=== PATIENT | female | born 1945 | race Caucasian/White ===

== ENCOUNTER 2018-11-07 03:53 | Observation (INO) | payer OTHER ==
[2018-11-07] MEDS ORDERED: ONDANSETRON 4 MG/2 ML VIAL ONE (04:32)
[2018-11-07 04:49] LABS: Absolute Lymphocytes (CBC) 0.2 K/uL (0.7-4.9); Basophils % 0.1 % (0-1.3); Hematocrit 40.7 % (36.0-45.0); Lymphocytes % 1.5 % (15.3-44.8); MPV 10.1 fL (7.6-11.3); RBC Red Blood Cell Count 4.37 M/uL (3.86-4.86)
[2018-11-07 05:01] LABS: ALT/SGPT 31 U/L (12-78); AST/SGOT 68 U/L (15-37); Albumin 3.7 g/dL (3.4-5.0); Alkaline Phosphatase 119 U/L (45-117); BUN Blood Urea Nitrogen 34 mg/dL (7-18); Bicarbonate 24 mmol/L (21-32); Bilirubin Total 0.9 mg/dL (0.2-1.0); Glucose Level 134 mg/dL (74-106); NT PRO-BNP 147 pg/mL (<125); Potassium 4.1 mmol/L (3.5-5.1); Protein, Total 6.9 g/dL (6.4-8.2); Sodium Level 142 mmol/L (136-145); Troponin (Emerg Dept Use Only) < 0.02 ng/mL (0.0-0.045)
[2018-11-07 05:20] LABS: Blood Morphology Comment NOT SEEN (NOT SEEN); Platelet Estimate ADEQ; Urine White Blood Cell Casts OK
--- NOTE | 2018-11-07 05:27 | ER ---
Nurse's Notes [facility] Name: Aminta Herman Age: 73 yrs Sex: Female : 1945 Arrival Date: 11/07/2018 Time: 03:58 Bed 13 Private MD: Diagnosis: Chest pain, unspecified Presentation: 11/07 04:09 Presenting complaint: Patient states: Nausea, diarrhea that began suddenly about 0130 lp1 this morning; States "I just feel so worn out, I can't do anything"; reports low blood pressure of 70 systolic at home. Transition of care: patient was not received from another setting of care. Onset of symptoms was November 07, 2018 at 01:30. Risk Assessment: Do you want to hurt yourself or someone else? Patient reports no desire to harm self or others. Initial Sepsis Screen: Does the patient meet any 2 criteria? No. Patient's initial sepsis screen is negative. Does the patient have a suspected source of infection? No. Patient's initial sepsis screen is negative. Care prior to arrival: None. 04:09 Method Of Arrival: Wheelchair lp1 04:09 Acuity: GABRIELA 3 lp1 Historical: - Allergies: 04:14 Coumadin; lp1 - Home Meds: 04:14 lisinopril 20 mg Oral tab 1 tab once daily [Active]; hydroxychloroquine 200 mg oral tab lp1 2 times per day [Active]; Prilosec 40 mg Oral cpDR 1 cap once daily [Active]; - PMHx: 04:14 Rheumatoid Arthritis; Hypertension; GERD; lp1 - PSHx: 04:14 Knee surgery; rotator cuff repair; bariatric surgery; back surgery; Cholecystectomy; lp1 - Immunization history:: Adult Immunizations up to date. - Social history:: Smoking status: Patient/guardian denies using tobacco. - Ebola Screening: : No symptoms or risks identified at this time. Screenin:14 Abuse screen: Denies threats or abuse. Denies injuries from another. Nutritional lp1 screening: No deficits noted. Tuberculosis screening: No symptoms or risk factors identified. Fall Risk Total [place] Fall Scale indicates High Risk Score (45 or more points). Fall prevention measures have been instituted. Side Rails Up X 2 As available patient and family educated on Fall Prevention Program and Strategies. Assessment: 04:15 General: Appears uncomfortable, Behavior is anxious, Reports fatigue for 0-12 hours. lp1 Pain: Complains of pain in chest, right upper quadrant and left upper quadrant Pain currently is 10 out of 10 on a pain scale. Quality of pain is described as aching. Neuro: Level of Consciousness is awake, alert, obeys commands, Oriented to person, place, time, situation. Cardiovascular: Patient's skin is warm and dry. Respiratory: Respiratory effort is even, unlabored, Respiratory pattern is regular. GI: Abdomen is non-distended, Bowel sounds present X 4 quads. Reports diarrhea, nausea. : No signs and/or symptoms were reported regarding the genitourinary system. EENT: No signs and/or symptoms were reported regarding the EENT system. Derm: Skin is thin, Skin is dry, Skin is pale. Musculoskeletal: No deficits noted. Vital Signs: 04:10 BP 127 / 82; Pulse 77; Resp 18; Temp 98.1(O); Pulse Ox 99% on R/A; Weight 72.57 kg; lp1 Height 5 ft. 0 in. (152.40 cm); Pain 10/10; 04:30 BP 103 / 71; Pulse 76; Resp 20; Pulse Ox 96% on R/A; lp1 05:00 BP 104 / 70; Pulse 74; Resp 20; Pulse Ox 97% on R/A; lp1 05:30 BP 102 / 69; Pulse 69; Resp 20; Pulse Ox 96% on R/A; lp1 04:10 Body Mass Index 31.25 (72.57 kg, 152.40 cm) lp1 ED Course: 03:58 Patient arrived in ED. mr 04:07 Raulito Camacho MD is Attending Physician. ps1 04:08 Sumaya Saleh, RADHA is Primary Nurse. lp1 04:10 Triage completed. lp1 04:10 Arm band placed on. lp1 04:14 Patient has correct armband on for positive identification. Placed in gown. Bed in low lp1 position. phototypesetting equipment monitor on. Pulse ox on. NIBP on. 05:03 CXR XRAY In Process Unspecified. EDMS 05:27 Nicolás Smith MD is Hospitalizing Provider. ps1 05:46 No provider procedures requiring assistance completed. 22g IV to R AC remains in place. lp1 Administered Medications: 04:38 Drug: Zofran 4 mg Route: IVP; Site: right antecubital; lp1 05:46 Follow up: Response: Nausea is decreased lp1 Outcome: 05:27 Decision to Hospitalize by Provider. ps1 05:46 Condition: stable lp1 05:46 Instructed on the need for admit. 05:53 Admitted to Tele accompanied by tech, family with patient, room 410, with chart, Report lp1 called to RADHA George 06:14 Patient left the ED. lp1 Signatures: Dispatcher [employer] Irish Villeda Laura, RADHA RN lp1 Raulito Camacho MD MD ps1
--- NOTE | 2018-11-07 05:27 | EDPHYS ---
Physician Documentation [facility] Name: Aminta Herman Age: 73 yrs Sex: Female : 1945 Arrival Date: 11/07/2018 Time: 03:58 Bed 13 Private MD: ED Physician Raulito Camacho HPI: 11/07 04:17 This 73 yrs old Female presents to ER via Wheelchair with complaints of ps1 Nausea, Blood Pressure Problem. 04:17 patient states that she has had fatigue for last couple of days. Patient states that ps1 she had NVD several times and then felt worse. Her took her blood pressure and it read 70/40 but he stated that it was probably incorrect. She is addtionally c/o chest pain and pressure. No known heart disease. She is currently normotensive. Patient has a history of RA and recently took flu and PNA vaccines. . Historical: - Allergies: 04:14 Coumadin; lp1 - Home Meds: 04:14 lisinopril 20 mg Oral tab 1 tab once daily [Active]; hydroxychloroquine 200 mg oral tab lp1 2 times per day [Active]; Prilosec 40 mg Oral cpDR 1 cap once daily [Active]; - PMHx: 04:14 Rheumatoid Arthritis; Hypertension; GERD; lp1 - PSHx: 04:14 Knee surgery; rotator cuff repair; bariatric surgery; back surgery; Cholecystectomy; lp1 - Immunization history:: Adult Immunizations up to date. - Social history:: Smoking status: Patient/guardian denies using tobacco. - Ebola Screening: : No symptoms or risks identified at this time. ROS: 04:17 Constitutional: Negative for fever, chills, and weight loss, Eyes: Negative for injury, ps1 pain, redness, and discharge, ENT: Negative for injury, pain, and discharge, Respiratory: Negative for shortness of breath, cough, wheezing, and pleuritic chest pain, Abdomen/GI: Negative for abdominal pain, nausea, vomiting, diarrhea, and constipation, MS/Extremity: Negative for injury and deformity, Skin: Negative for injury, rash, and discoloration, Neuro: Negative for headache, weakness, numbness, tingling, and seizure. 04:17 Cardiovascular: Positive for chest pain. Exam: 04:17 Constitutional: This is a well developed, well nourished patient who is awake, alert, ps1 and in no acute distress. Head/Face: Normocephalic, atraumatic. Eyes: Pupils equal round and reactive to light, extra-ocular motions intact. Lids and lashes normal. Conjunctiva and sclera are non-icteric and not injected. Chest/axilla: Normal chest wall appearance and motion. Nontender with no deformity. No lesions are appreciated. Cardiovascular: Regular rate and rhythm. No gallops, murmurs, or rubs. Normal PMI, no JVD. No pulse deficits. Respiratory: Lungs have equal breath sounds bilaterally, clear to auscultation and percussion. No rales, rhonchi or wheezes noted. No increased work of breathing, no retractions or nasal flaring. Abdomen/GI: Soft, non-tender, with normal bowel sounds. No distension or tympany. No guarding or rebound. No evidence of tenderness throughout. Skin: Warm, dry with normal turgor. Normal color with no rashes, no lesions, and no evidence of cellulitis. MS/ Extremity: Pulses equal, no cyanosis. Neurovascular intact. Full, normal range of motion. Neuro: Awake and alert, GCS 15, oriented to person, place, time, and situation. Cranial nerves II-XII grossly intact. Sensory grossly intact. Psych: Awake, alert, with orientation to person, place and time. Behavior, mood, and affect are within normal limits. Vital Signs: 04:10 BP 127 / 82; Pulse 77; Resp 18; Temp 98.1(O); Pulse Ox 99% on R/A; Weight 72.57 kg; lp1 Height 5 ft. 0 in. (152.40 cm); Pain 10/10; 04:30 BP 103 / 71; Pulse 76; Resp 20; Pulse Ox 96% on R/A; lp1 05:00 BP 104 / 70; Pulse 74; Resp 20; Pulse Ox 97% on R/A; lp1 05:30 BP 102 / 69; Pulse 69; Resp 20; Pulse Ox 96% on R/A; lp1 04:10 Body Mass Index 31.25 (72.57 kg, 152.40 cm) lp1 MDM: 04:17 Patient medically screened. ps1 05:27 Data reviewed: vital signs, nurses notes, lab test result(s), EKG, radiologic studies, ps1 and as a result, I will continue to observe the patient. Data reviewed: and as a result, I will admit patient. 11/07 04:40 Order name: CBC with Diff ps1 11/07 04:40 Order name: CMP; Complete Time: 05: ps1 11/07 04:40 Order name: Troponin (emerg Dept Use Only); Complete Time: 05: ps1 11/07 04:40 Order name: BNP; Complete Time: : ps1 11/07 04:41 Order name: CBC with Automated Diff; Complete Time: 05: EDMS 11/07 05:21 Order name: CBC Smear Scan; Complete Time: : EDMS 11/07 04:40 Order name: CXR XRAY ps1 EC: Rate is 79 beats/min. Rhythm is regular. QRS [place] is Normal. [place] interval is normal. QRS ps1 interval is normal. QT interval is normal. No Q waves. T waves are Normal. No ST changes noted. Clinical impression: Normal ECG. Reviewed by me. Administered Medications: 04:38 Drug: Zofran 4 mg Route: IVP; Site: right antecubital; lp1 05:46 Follow up: Response: Nausea is decreased lp1 Disposition: 11/07/18 05:27 Hospitalization ordered by Nicolás Smith for Observation. Preliminary diagnosis is Chest pain, unspecified. - Bed requested for Telemetry/MedSurg (observation). - Status is Observation. lp1 - Condition is Stable. - Problem is new. - Symptoms have improved. UTI on Admission? No Signatures: Dispatcher [employer] EDCO Maria Isabel Padron RN RN Sumaya Saleh RN RN lp1 Raulito Camacho MD MD ps1 Corrections: (The following items were deleted from the chart) 05:41 05:27 Hospitalization Ordered by Nicolás Smith MD for Observation. Preliminary mw diagnosis is Chest pain, unspecified. Bed requested for Telemetry/MedSurg (observation). Status is Observation. Condition is Stable. Problem is new. Symptoms have improved. UTI on Admission? No. ps1 06:14 05:41 11/07/2018 05:27 Hospitalization Ordered by Nicolás Smith MD for Observation. lp1 Preliminary diagnosis is Chest pain, unspecified. Bed requested for Telemetry/MedSurg (observation). Status is Observation. Condition is Stable. Problem is new. Symptoms have improved. UTI on Admission? No. mw
[2018-11-07] MEDS ORDERED: ACETAMINOPHEN 500 MG TAB PO PRN (06:26)
[2018-11-07] MEDS ORDERED: ONDANSETRON 4 MG/2 ML VIAL IV PRN (06:26)
[2018-11-07 06:36] VITALS: BMI 4752.3
[2018-11-07] MEDS: NA CHLORIDE 0.9% 1,000 ML IV SCH ×2 (08:10→17:00)
--- NOTE | 2018-11-07 08:47 | P.HP ---
Certification for Inpatient Patient admitted to: Observation With expected LOS: <2 Midnights Patient will require the following post-hospital care: None Practitioner: I am a practitioner with admitting privileges, knowledge of patient current condition, hospital course, and medical plan of care. Services: Services provided to patient in accordance with Admission requirements found in Title 42 Section 412.3 of the Code of Federal Regulations Patient History Date of Service: 11/07/18 Reason for admission: Hypotension; acute kidney injury; gastroenteritis History of Present Illness: Patient is a 73-year-old female who has a history of rheumatoid arthritis and has been on immunosuppressants. She was here visiting family in started getting nauseated. She was not feeling well and blood pressure check revealed a blood pressure of 70/50. She was brought into the emergency room. She was given IV fluids. She started feeling somewhat better. She was found have acute kidney injury as well. At this time she will be admitted to the hospital for further evaluation. Allergies warfarin [From Coumadin] Allergy (Verified 11/07/18 06:38) Nausea/Vomiting Home Medications: Cyanocobalamin (Vitamin B-12) [Vitamin B-12] 500 mcg PO DAILY 11/07/18 Hydroxychloroquine [Plaquenil*] 1 tab PO BID 11/07/18 Lisinopril [Prinivil*] 1 tab PO DAILY 11/07/18 Omeprazole [Prilosec] 1 cap PO DAILY 11/07/18 - Past Medical/Surgical History -: Rheumatoid arthritis -: Hypertension -: Gastric bypass surgery - Family History Father Family History: Reviewed- Non-Contributory - Social History Smoking Status: Unknown if ever smoked Alcohol use: No CD- Drugs: No Review of Systems 10-point ROS is otherwise unremarkable Physical Examination - Vital Signs Temperature: 98 F Blood Pressure: 110/74 Pulse: 72 Respirations: 18 Pulse Ox (%): 93 - Physical Exam General: Alert, In no apparent distress, Oriented x3 HEENT: Atraumatic, PERRLA, Mucous membr. moist/pink, EOMI, Sclerae nonicteric Neck: Supple, 2+ carotid pulse no bruit, No LAD, Without JVD or thyroid abnormality Respiratory: Clear to auscultation bilaterally, Normal air movement Cardiovascular: Regular rate/rhythm, Normal S1 S2, No murmurs Gastrointestinal: Normal bowel sounds, Soft and benign, Non-distended, Tenderness Musculoskeletal: No clubbing, No swelling, No tenderness Integumentary: No rashes Neurological: Normal gait, Normal speech, Normal strength at 5/5 x4 extr, Normal tone, Sensation intact, Cranial nerves 3-12 intact, Normal affect Lymphatics: No axilla or inguinal lymphadenopathy - Studies Laboratory Data (last 24 hrs) 11/07/18 04:14: Sodium 142, Potassium 4.1, BUN 34 H, Creatinine 0.99, Glucose 134 H, Total Bilirubin 0.9, AST 68 H, ALT 31, Alkaline Phosphatase 119 H 11/07/18 04:14: WBC 10.1, Hgb 13.6, Hct 40.7, Plt Count 179 Assessment & Plan - Problems (Diagnosis) (1) Viral gastroenteritis Current Visit: Yes Status: Acute (2) Acute kidney injury Current Visit: Yes Status: Acute (3) Hypotension Current Visit: Yes Status: Acute (4) History of rheumatoid arthritis Current Visit: Yes Status: Acute - Plan Plan: 1. IV fluids 2. Monitor hemodynamics closely 3. Stool studies if patient has diarrhea 4. Monitor labs closely 5. Check cortisol level(patient is given large dose of steroids over multiple days according to patient) 6. Possible discharge home if tolerating diet appropriately 7. Anti emetics as needed 8. GI and DVT prophylaxis Discharge Plan: Home Plan to discharge in: 48 Hours - Advance Directives Does patient have a Living Will: No Does patient have a Durable POA for Healthcare: No - Code Status/Comfort Care Code Status Assessed: Yes Code Status: Full Code Critical Care: No Time Spent Managing PTS Care (In Minutes): 45
[2018-11-07 09:48] LABS: Urine Appearance CLEAR; Urine Bilirubin NEGATIVE (NEG); Urine Blood NEGATIVE (NEG); Urine Color YELLOW; Urine Glucose NEGATIVE (NEG); Urine Protein NEGATIVE (NEG); Urine Specific Gravity >=1.030 (1.005-1.030); Urine Urobilinogen 0.2 mg/dL (0.2-1.0)
[2018-11-07 10:00] LABS: Urine Bacteria 20-50 /HPF (<20); Urine Culture Reflex Order REFLEXED; Urine Mucus LIGHT /HPF (NONE SEEN); Urine RBC NONE SEEN /HPF (NONE SEEN)
--- NOTE | 2018-11-07 11:07 | RAD REPORT ---
EXAM DESCRIPTION: RAD CHEST SINGLE VIEW CLINICAL HISTORY: Chest pain. COMPARISON: None. TECHNIQUE: Single view chest FINDINGS: The lungs are clear. The heart is mildly enlarged in size. Mild aortic atherosclerosis.
[2018-11-07 11:23] LABS: Absolute Lymphocytes (CBC) 0.2 K/uL (0.7-4.9); Basophils % 0.1 % (0-1.3); Hematocrit 39.2 % (36.0-45.0); Lymphocytes % 1.9 % (15.3-44.8); MPV 9.9 fL (7.6-11.3); RBC Red Blood Cell Count 4.16 M/uL (3.86-4.86)
[2018-11-07 11:39] LABS: Potassium 4.3 mmol/L (3.5-5.1)
[2018-11-07 11:43] VITALS: O2SAT 94
[2018-11-08] MEDS: NA CHLORIDE 0.9% 1,000 ML IV SCH ×2 (03:00→07:05)
[2018-11-08 05:57] LABS: Absolute Lymphocytes (CBC) 0.6 K/uL (0.7-4.9); Basophils % 0.1 % (0-1.3); Hematocrit 34.9 % (36.0-45.0); MPV 9.7 fL (7.6-11.3); RBC Red Blood Cell Count 3.71 M/uL (3.86-4.86)
[2018-11-08 06:26] LABS: Albumin 2.8 g/dL (3.4-5.0); Bilirubin Total 0.6 mg/dL (0.2-1.0); Potassium 3.8 mmol/L (3.5-5.1); Protein, Total 5.6 g/dL (6.4-8.2)
--- NOTE | 2018-11-08 07:29 | EKG ---
Test Date: 2018-11-07 Test Time: 04:10:27 [place]: [place]SEMARY MEASUREMENT RESULTS: Intervals: Rate: 79 ND: 186 QRSD: 74 QT: 386 QTc: 442 [place]: P: 26 ND: 186 QRS: 2 T: 33 INTERPRETIVE STATEMENTS: Normal sinus rhythm Normal ECG No previous ECG available for comparison Electronically Signed On 11-08-18 07:29:12 CDT by Narciso Crisostomo
[2018-11-08 12:48] VITALS: BP 134/78; TEMP 97.3
--- NOTE | 2018-11-08 12:48 | P.SSS ---
Patient History Date of Service: 11/08/18 Reason for admission: Hypotension; acute kidney injury; gastroenteritis History of Present Illness: Patient is a 73-year-old female who has a history of rheumatoid arthritis and has been on immunosuppressants. She was here visiting family in started getting nauseated. She was not feeling well and blood pressure check revealed a blood pressure of 70/50. She was brought into the emergency room. She was given IV fluids. She started feeling somewhat better. She was found have acute kidney injury as well. At this time she will be admitted to the hospital for further evaluation. Allergies warfarin [From Coumadin] Allergy (Verified 11/07/18 06:38) Nausea/Vomiting Home medications list reviewed: Yes Home Medications: Cyanocobalamin (Vitamin B-12) [Vitamin B-12] 500 mcg PO DAILY 11/07/18 Hydroxychloroquine [Plaquenil*] 1 tab PO BID 11/07/18 Lisinopril [Prinivil*] 1 tab PO DAILY 11/07/18 Omeprazole [Prilosec] 1 cap PO DAILY 11/07/18 Vit B Complex 50 1 tab PO DAILY 11/07/18 - Past Medical/Surgical History Has patient received pneumonia vaccine in the past: Yes -: Rheumatoid arthritis -: Hypertension -: GERD -: Asthma -: Gastric bypass surgery -: Right Knee replacemnet -: Rotator cuff surgery -: back surgery -: trigger finger -: Gall bladder removal -: Bariatric surgery - Family History Father -: Other (see notes) Notes: Aneurysm Mother History Unknown: Yes - Social History Smoking Status: Unknown if ever smoked Alcohol use: No CD- Drugs: No Caffeine use: Yes Review of Systems 10-point ROS is otherwise unremarkable Physical Examination - Vital Signs Temperature: 97.3 F Blood Pressure: 134/78 Pulse: 60 Respirations: 17 Pulse Ox (%): 94 - Physical Exam General: Alert, In no apparent distress, Oriented x3 HEENT: Atraumatic, PERRLA, Mucous membr. moist/pink, EOMI, Sclerae nonicteric Neck: Supple, 2+ carotid pulse no bruit, No LAD, Without JVD or thyroid abnormality Respiratory: Clear to auscultation bilaterally, Normal air movement Cardiovascular: Regular rate/rhythm, Normal S1 S2 Gastrointestinal: Normal bowel sounds, No tenderness Musculoskeletal: No tenderness Integumentary: No rashes Neurological: Normal gait, Normal speech, Normal strength at 5/5 x4 extr, Normal tone, Normal affect Lymphatics: No axilla or inguinal lymphadenopathy Treatment Summary: Patient was admitted viral gastroenteritis acute kidney injury along with hypertension. She was provided with fluids and supportive care. Her labs improved as did her blood pressure. She otherwise still throughout the stay. She was discharged on in stable manner. - Disposition Discharge Date: 11/08/18 Disposition: ROUTINE DISCHARGE Condition: GOOD Patient Discharge Instructions: Please follow up with your primary care physician in 2-3 days. 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 Return to the Emergency room for worsening symptoms. Diet: Regular Activity: Ad jose
== END 2018-11-08 12:59 | disposition home or self-care (01) ==
LOC: ER 03:53 → 4TH 05:56
PROVIDERS: ADMIT Hospitalist; ATTEND Hospitalist
DX: A08.4 Viral intestinal infection, unspecified (principal); N17.9 Acute kidney failure, unspecified; I95.9 Hypotension, unspecified; M06.9 Rheumatoid arthritis, unspecified; I10 Essential (primary) hypertension; Z98.84 Bariatric surgery status
CPT/HCPCS: 93005; 87088; 85025 ×3; 81001; 87086; 80048; 36415 ×2; 84484; 83690; 80053 ×2; 82533; 83880; 71045; 96374; 99285; J7030 ×3; J2405 ×2; G0378 ×3